=== PATIENT | female | born 1980 | race Caucasian/White ===

== ENCOUNTER 2017-04-26 15:13 | Emergency (ER) | payer SELFPAY ==
[~2017-04-26] VITALS: Ht 157.5 cm; Wt 88.1 kg
[2017-04-26 17:23] LABS: HEMATOCRIT 44.1 % (36.0-46.0); MCH 28.1 PG (29.0-34.0); MCHC 33.3 G/DL (30.0-36.0); MCV 84.3 FL (83-99); MEAN PLAT.VOLUME 10.2 uM^3 (9.5-12.4); PLATELET COUNT 352 K/uL (156-360); RBC DIS.WIDTH-CV 12.5 % (11.8-14.6); RBC DIS.WIDTH-SD 37.8 % (39-53); RED BLOOD COUNT 5.23 M/uL (3.80-5.20); WHITE BLOOD COUNT 10.8 K/uL (4.1-10.2)
[2017-04-26 17:34] LABS: ADD MIUA? YES; BILIRUBIN NEGATIVE; BLOOD NEGATIVE; COLOR YELLOW ((YELLOW)); GLUCOSE (STRIP) NEGATIVE; KETONES 80; LEUKOCYTES MODERATE; NITRITE NEGATIVE; PROTEIN (STRIP) 100; UROBILINOGEN 0.2 MG/DL (0.2-1.0)
[2017-04-26 17:36] LABS: CHLORIDE 106 mEq/L (99-109); POTASSIUM 4.2 mEq/L (3.7-5.4); SODIUM 137 mEq/L (136-147)
[2017-04-26 17:38] LABS: GLUCOSE 93 mg/dL (70-99)
[2017-04-26 17:39] LABS: ANION GAP 11 MEQ/L (2-14)
[2017-04-26 17:41] LABS: BACTERIA NONE SEEN /HPF; EPITHELIAL CELLS 4+ /HPF; HYALINE CASTS 0-5 /LPF; MUCUS 4+ /LPF; RED BLOOD CELLS 15-20 /HPF (0-5); WHITE BLOOD CELLS TNTC /HPF (0-5)
[2017-04-26 17:42] LABS: GFR ESTIMATE (CALCULATED) > 59 mL/min/
[2017-04-26 17:43] LABS: UREA NITROGEN (BUN) 11 mg/dL (9-23)
[2017-04-26 17:44] LABS: CREATINE KINASE 89 IU/L (1-294); TOTAL CK 89 IU/L (1-294)
[2017-04-26 17:46] LABS: TROP-I INTERPRETATION NEGATIVE; TROPONIN-I < 0.01 ng/mL (0.0-0.30)
[2017-04-26 17:52] LABS: QUANTITATIVE HCG < 4.0 MIU/ML
[2017-04-26 17:53] LABS: CK-MB 0.9 ng/mL (0.0-4.9)
[2017-04-26] MEDS ORDERED: ANTIVERT25 MG PO (18:35)
[2017-04-26 19:28] VITALS: BP 123/78
== END 2017-04-26 19:30 | disposition home or self-care (01) ==
LOC: EME 15:13
PROVIDERS: Physician Assistant
DX: R42 Dizziness and giddiness (principal); Z91.81 History of falling
CPT/HCPCS: 71020; 80048; 81003; 82550; 82553; 84484; 84702; 85027; 93005; 99281; 99285; J7030